=== PATIENT | male | born 1975 | race African-American/Black ===

== ENCOUNTER 2017-12-30 08:09 | Emergency (ER) | payer SELFPAY ==
[~2017-12-30] VITALS: Ht 190.5 cm; Wt 96.0 kg
[~2017-12-30 08:09] MED LIST: AMLO5TAB4 PO; ASPI-1079 PO; LISI-650; LISI2.5T89 PO; OMEP20CA4 PO; PRAV40TA PO; PRO AIR
[2017-12-30] MEDS ORDERED: HYDROCODONE/ACETAMINOPHEN 5/325MG TABLET PO ONE (08:30)
[2017-12-30 09:22] VITALS: BP 156/102
== END 2017-12-30 09:39 | disposition home or self-care (01) ==
LOC: ER 08:09
DX: S62.394A Other fracture of fourth metacarpal bone, right hand, initial encounter for closed fracture (principal); I10 Essential (primary) hypertension; Y04.0XXA Assault by unarmed brawl or fight, initial encounter; Y93.89 Activity, other specified; Y92.89 Other specified places as the place of occurrence of the external cause
CPT/HCPCS: 29125; 73130; 99284

== ENCOUNTER 2018-06-09 14:17 | Inpatient (IN) | payer OTHER ==
[~2018-06-09] VITALS: Ht 190.5 cm; Wt 104.3 kg
[2018-06-09] MEDS ORDERED: ONDANSETRON HCL 4MG/2ML INJ IV STA (17:58)
[2018-06-09] MEDS ORDERED: SODIUM CHLORIDE 0.9% 1,000 ML IV ONE (17:58)
[2018-06-09] MEDS ORDERED: KETOROLAC 30MG/ML VIAL IV STA (17:58)
[2018-06-09 18:42] LABS: CHLORIDE 107 mEq/L (98-107)
[2018-06-09 18:43] LABS: PROTHROMBIN TIME 10.5 sec (9.1-11.1)
[2018-06-09 18:45] LABS: BASOPHILS % 0.6 % (0.0-2.0); EOSINOPHILS % 0.1 % (0.0-5.0); HEMATOCRIT. 39.7 % (42.0-52.0); HEMOGLOBIN. 13.6 g/dL (14.0-18.0); LYMPHOCYTES % 10.4 % (20.0-50.0); MEAN CORPUSCULAR HEMOGLOBIN 28.4 pg (28.0-32.0); MEAN CORPUSCULAR VOLUME 83.1 fL (80.0-94.0); MEAN PLATELET VOLUME 8.8 fl (7.4-10.4); NEUTROPHILS % 81.9 % (40.0-76.0); PLATELET 255 x1000/uL (130-400); RED BLOOD CELL COUNT 4.78 mill/uL (4.7-6.1); RED CELL DISTRIBUTION WIDTH 13.2 % (11.6-14.6)
[2018-06-09] MEDS ORDERED: HYDROCODONE/ACETAMINOPHEN 5/325MG TABLET PO NR (19:30)
[2018-06-09] MEDS ORDERED: HYDROCODONE/ACETAMINOPHEN 5/325MG TABLET PO ONE (19:45)
[2018-06-09 20:21] LABS: CLARITY URINE CLEAR (CLEAR); COLOR URINE YELLOW (YELLOW); KETONES URINE TRACE (NEGATIVE); LEUKOCYTE ESTERASE URINE NEGATIVE (NEGATIVE); NITRITE URINE NEGATIVE (NEGATIVE); OCCULT BLOOD URINE TRACE (NEGATIVE); PH URINE 8.5 (4.5-8.0); PROTEIN URINE NEGATIVE (NEGATIVE); SPECIFIC GRAVITY URINE 1.017 (1.005-1.030); UROBILINOGEN URINE 0.2 E.U./dL (0.2-1.0)
[2018-06-09] MEDS ORDERED: MORPHINE SULFATE 4 MG/ML CPJ (NOT FOR IM USE) IV ONE ×2 (20:30→23:00)
[2018-06-10] MEDS ORDERED: LEVOFLOXACIN 500MG PREMIX 100 ML IV SCH (00:45)
[2018-06-10] MEDS ORDERED: HYDROCODONE/ACETAMINOPHEN 5/325MG TABLET PO PRN (00:45)
[2018-06-10] MEDS ORDERED: ONDANSETRON HCL 4MG/2ML INJ IV PRN (00:45)
[2018-06-10] MEDS ORDERED: HYDROMORPHONE HCL/PF 2MG/ML CPJ IV PRN (00:45)
[2018-06-10] MEDS ORDERED: LEVOFLOXACIN 500MG PREMIX 100 ML IV NR (03:00)
[2018-06-10] MEDS: SODIUM CHLORIDE 0.45% 1,000 ML IV SCH (03:45)
[2018-06-10 10:30] VITALS: BP 143/95
[2018-06-10] MEDS: AMLODIPINE 10MG TABLET PO SCH (11:31)
[2018-06-10 12:00] VITALS: BP 143/95
[2018-06-10 12:03] VITALS: BP 143/95
[2018-06-10 12:33] VITALS: BP 143/95
[2018-06-10 16:00] VITALS: BP 160/97
[2018-06-10] MEDS: CLONIDINE 0.1MG TABLET PO PRN (16:41)
[2018-06-10 20:00] VITALS: BP 176/94
[2018-06-11 04:00] VITALS: BP 167/99
[2018-06-11] MEDS ORDERED: LEVOFLOXACIN 500MG PREMIX 100 ML IV SCH (04:00)
[2018-06-11] MEDS: SODIUM CHLORIDE 0.45% 1,000 ML IV SCH (04:03)
[2018-06-11] MEDS: CLONIDINE 0.1MG TABLET PO PRN ×2 (04:17→13:08)
[2018-06-11 08:00] VITALS: BP 160/96
[2018-06-11 08:05] LABS: BASOPHILS % 0.7 % (0.0-2.0); EOSINOPHILS % 3.6 % (0.0-5.0); HEMATOCRIT. 41.7 % (42.0-52.0); HEMOGLOBIN. 13.9 g/dL (14.0-18.0); LYMPHOCYTES % 35.1 % (20.0-50.0); MEAN CORPUSCULAR HEMOGLOBIN 28.5 pg (28.0-32.0); MEAN CORPUSCULAR VOLUME 85.5 fL (80.0-94.0); MEAN PLATELET VOLUME 8.4 fl (7.4-10.4); NEUTROPHILS % 49.6 % (40.0-76.0); PLATELET 245 x1000/uL (130-400); RED BLOOD CELL COUNT 4.88 mill/uL (4.7-6.1); RED CELL DISTRIBUTION WIDTH 13.3 % (11.6-14.6)
[2018-06-11 08:13] LABS: CHLORIDE 108 mEq/L (98-107)
[2018-06-11] MEDS: AMLODIPINE 10MG TABLET PO SCH (08:29)
[2018-06-11 12:00] VITALS: BP 148/97
[2018-06-11 15:31] VITALS: BP 148/97
[2018-06-11] MEDS ORDERED: ATORVASTATIN CALCIUM 10MG TABLET PO SCH (21:00)
== END 2018-06-11 14:05 | disposition home or self-care (01) | DRG 465 ==
LOC: ER 14:17 → 6EST 23:00 → EDBEDREQTM 23:03 → EDBEDREQ 23:03 → ENRESERV 06-10 07:23
PROVIDERS: ADMIT Hospitalist; ATTEND Hospitalist
DX: N13.2 Hydronephrosis with renal and ureteral calculous obstruction (principal); N17.9 Acute kidney failure, unspecified; I10 Essential (primary) hypertension; I25.10 Atherosclerotic heart disease of native coronary artery without angina pectoris; I25.2 Old myocardial infarction; M48.061 Spinal stenosis, lumbar region without neurogenic claudication; M51.37 Other intervertebral disc degeneration, lumbosacral region; Z87.891 Personal history of nicotine dependence; E78.5 Hyperlipidemia, unspecified
CPT/HCPCS: 36415; 74022; 74176; 96374; 96375; 99285; J1170; J1885; J1956; J2270; J2405; J7030